=== PATIENT | female | born 2000 | race Caucasian/White ===

== ENCOUNTER 2024-06-04 14:43 | Outpatient (CLI) | payer OTHER, SELFPAY ==
--- NOTE | 2024-06-04 15:00 | CRLHL7_ITS ---
For Patients: As a result of the Century Cures Act, medical imaging exams and procedure reports are released immediately into your electronic medical record. You may view this report before your referring provider. If you have questions, please contact your health care provider. INDICATION: Dating and viability. LMP 03/31/2024. COMPARISON: None. TECHNIQUE: Ultrasound OB pelvis with grayscale imaging and color Doppler analysis using transvaginal technique. FINDINGS: Sonographic imaging demonstrates a single intrauterine gestational sac containing a yolk sac but no pole. There appears to be some debris within the sac. The mean sac diameter measures 2.1 cm which corresponds to a gestational age of 7 weeks 0 days. The placenta has not yet developed. There is a 2.3 x 1.0 x 2.1 cm subchorionic hemorrhage in the lower uterus. The right ovary measures 4.5 x 2.7 x 4.2 cm and the left ovary measures 3.5 x 1.4 x 1.9 cm. The ovaries demonstrate normal arterial and venous blood flow on color Doppler analysis. There is a 3.8 x 2.5 x 3.6 cm anechoic cyst in the right ovary. No suspicious adnexal mass. No free fluid in the pelvic cul-de-sac. IMPRESSION: 1. Intrauterine gestational sac containing a yolk sac but no pole. Ultrasound gestational age is 7 weeks 0 days which is discordant with the clinical gestational age of 9 weeks 2 days by LMP. 2. Findings are suspicious but not technically diagnostic of failure. Recommend follow-up ultrasound in 1 week. 3. Simple appearing right ovarian cyst measuring 3.8 cm. 4. Small to moderate subchorionic hemorrhage. 5. Findings discussed with Gisselle Monet at 5:48 p.m. on 06/04/2024. Dictated by Fay Richardson MD @ 06/04/2024 5:32:34 PM (Electronically Signed)
== END 2024-06-04 14:44 | disposition home or self-care (01) ==
LOC: US 14:46
PROVIDERS: Visit Provider Registered Nurse
DX: Z34.91 Encounter for supervision of normal pregnancy, unspecified, first trimester (principal); O20.9 Hemorrhage in early pregnancy, unspecified; O34.81 Maternal care for other abnormalities of pelvic organs, first trimester; N83.291 Other ovarian cyst, right side; Z3A.09 9 weeks gestation of pregnancy
CPT/HCPCS: 76817; 84702; 86850; 86900; 86901; 93976

== ENCOUNTER 2024-06-07 09:06 | Outpatient (CLI) | payer OTHER, SELFPAY | END 2024-06-07 09:07 | disposition home or self-care (01) | LOC: NFLDREF 06-10 11:15 | PROVIDERS: Visit Provider Registered Nurse | DX: Z34.90 Encounter for supervision of normal pregnancy, unspecified, unspecified trimester (principal) | CPT/HCPCS: 84702 ==

== ENCOUNTER 2024-06-13 15:38 | Outpatient (CLI) | payer OTHER, SELFPAY | END 2024-06-13 15:39 | disposition home or self-care (01) | LOC: NFLDREF 06-17 08:18 | PROVIDERS: Visit Provider Registered Nurse | DX: O03.9 Complete or unspecified spontaneous abortion without complication (principal) | CPT/HCPCS: 84702 ==

== ENCOUNTER 2024-06-20 13:54 | Outpatient (CLI) | payer OTHER, SELFPAY | END 2024-06-20 13:55 | disposition home or self-care (01) | LOC: NFLDREF 06-26 10:08 | PROVIDERS: Visit Provider Registered Nurse | DX: O03.9 Complete or unspecified spontaneous abortion without complication (principal) | CPT/HCPCS: 84702 ==

== ENCOUNTER 2024-06-27 13:55 | Outpatient (CLI) | payer OTHER, SELFPAY | END 2024-06-27 13:56 | disposition home or self-care (01) | LOC: NFLDREF 06-28 11:17 | PROVIDERS: Visit Provider Registered Nurse | DX: Z34.90 Encounter for supervision of normal pregnancy, unspecified, unspecified trimester (principal) | CPT/HCPCS: 84702 ==

== ENCOUNTER 2024-07-25 13:50 | Outpatient (CLI) | payer OTHER, SELFPAY | END 2024-07-25 13:51 | disposition home or self-care (01) | LOC: NFLDREF 07-28 17:56 | PROVIDERS: Visit Provider Obstetrics & Gynecology | DX: Z32.01 Encounter for pregnancy test, result positive (principal) | CPT/HCPCS: 84702 ==

== ENCOUNTER 2024-08-06 13:34 | Outpatient (CLI) | payer OTHER, SELFPAY | END 2024-08-06 13:35 | disposition home or self-care (01) | LOC: NFLDREF 13:35 | PROVIDERS: Visit Provider Obstetrics & Gynecology | DX: O20.9 Hemorrhage in early pregnancy, unspecified (principal) | CPT/HCPCS: 84702 ==

== ENCOUNTER 2024-08-15 13:53 | Outpatient (CLI) | payer OTHER, SELFPAY ==
--- NOTE | 2024-08-15 14:00 | CRLHL7_ITS ---
For Patients: As a result of the Century Cures Act, medical imaging exams and procedure reports are released immediately into your electronic medical record. You may view this report before your referring provider. If you have questions, please contact your health care provider. INDICATION: First trimester dating and viability. TECHNIQUE: Ultrasound OB pelvis transabdominal and transvaginal. Real-time breen-scale imaging of the pelvis was performed. COMPARISON: None. FINDINGS: Intrauterine gestation: Single. heart activity (bpm): 163. [place]-rump length: 1.8 cm. Estimated ultrasound age: 8 weeks 2 days. NARENDRA by ultrasound: March 25, 2025. Yolk sac: Normal. Perigestational hemorrhage: Present measuring 3 x 3 x 1 cm. Ovaries and adnexa: Unremarkable. Suspicious pelvic fluid collections: None. IMPRESSION: Single viable intrauterine . There is a 3 x 3 x 1 cm subchorionic hemorrhage. No other abnormality. Dictated by Zeeshan Chinchilla MD @ 08/18/2024 8:47:14 PM (Electronically Signed)
== END 2024-08-15 13:54 | disposition home or self-care (01) ==
LOC: US 13:53
PROVIDERS: Visit Provider Physician Assistant
DX: Z34.91 Encounter for supervision of normal pregnancy, unspecified, first trimester (principal); O20.9 Hemorrhage in early pregnancy, unspecified
CPT/HCPCS: 76817; 86592; 86703; 86704; 86706; 86762; 86787; 86803; 86850; 86900; 86901; 87086; 87340; 87491; 87591; 88142

== ENCOUNTER 2024-08-15 14:49 | Outpatient (CLI) | payer OTHER, SELFPAY ==
[2024-08-15 19:15] LABS: Chlamydia DNA Amplified* NOT DETECTED (No Detected); GC DNA Amplified* NOT DETECTED (No Detected)
== END 2024-08-15 14:50 | disposition home or self-care (01) ==
PROVIDERS: Visit Provider Physician Assistant
DX: Z34.91 Encounter for supervision of normal pregnancy, unspecified, first trimester (principal); Z12.4 Encounter for screening for malignant neoplasm of cervix
CPT/HCPCS: 86592; 86703; 86704; 86706; 86762; 86787; 86803; 86850; 86900; 86901; 87086; 87340; 87491; 87591; 87624; 87625; 88141; 88142

== ENCOUNTER 2024-11-07 07:59 | Outpatient (CLI) | payer OTHER, SELFPAY ==
--- NOTE | 2024-11-07 08:15 | CRLHL7_ITS ---
For Patients: As a result of the Century Cures Act, medical imaging exams and procedure reports are released immediately into your electronic medical record. You may view this report before your referring provider. If you have questions, please contact your health care provider. INDICATION: Evaluate anatomy. COMPARISON: 08/15/2024 TECHNIQUE: Real time breen scale imaging of the fetus was performed as well as color Doppler analysis of the umbilical vessels. FINDINGS: Sonographic imaging demonstrates a single living intrauterine gestation. Fetus demonstrates a regular cardiac rate of 155 beats per minute. Fetus has a breech position. The placenta lies anteriorly without evidence of placenta previa. Edge of the placenta is located 4.4 cm from the internal cervical os. Amniotic fluid volume appears normal. Single deepest vertical pocket: 4.0 cm. The cervix is closed and measures 5.2 cm in length. The composite ultrasound gestational age is calculated at 20 weeks 0 days with an estimated sonographic due date of 03/27/2025. The estimated weight is 317 grams which lies at the 23rd %. The following biometric measurements were obtained: Biparietal diameter: 4.5 cm/19 weeks 3 days 19th% Head circumference: 17.0 cm/19 weeks 4 days 14th% Abdominal circumference: 14.2 cm/19 weeks 4 days 22nd% Femur length: 3.3 cm/20 weeks 2 days 40th% The HC/AC ratio measures: 1.19 range (1.08-1.25) On anatomic survey, there is a normal appearance of the cerebral ventricles, cavum septi pellucidi, cisterna magna and cerebellum. The nose and lips appear normal. profile not visualized due to position the cervical, thoracic and lumbar spine are well visualized and appear normal. Heart views not well visualized due to position. The diaphragm and stomach appear normal. The kidneys and bladder also appear normal. Renal pelvis measures less than 3 millimeters bilaterally, considered normal. There is a normal three-vessel cord and there is a margin placenta cord insertion site located 1.4 cm from the edge of the placenta. The four extremities appear normal. IMPRESSION: Concordance of clinical and sonographic dating. Incomplete visualization of the profile and heart views due to positioning. Remainder of the anatomic survey unremarkable. Short-term follow-up recommended. Marginal placental cord insertion located 1.4 cm from the placental edge. Dictated by Сергей Razo MD @ 11/07/2024 10:35:49 AM (Electronically Signed)
== END 2024-11-07 08:00 | disposition home or self-care (01) ==
PROVIDERS: Visit Provider Advanced Practice Midwife
DX: Z34.92 Encounter for supervision of normal pregnancy, unspecified, second trimester (principal); O36.8320 Maternal care for abnormalities of the fetal heart rate or rhythm, second trimester, not applicable or unspecified; Z3A.20 20 weeks gestation of pregnancy
CPT/HCPCS: 76805

== ENCOUNTER 2024-11-21 12:00 | Outpatient (CLI) | payer OTHER, SELFPAY ==
--- NOTE | 2024-11-21 12:15 | CRLHL7_ITS ---
For Patients: As a result of the Century Cures Act, medical imaging exams and procedure reports are released immediately into your electronic medical record. You may view this report before your referring provider. If you have questions, please contact your health care provider. INDICATION: Facial profile and heart views suboptimal on survey TECHNIQUE: Limited transabdominal two-dimensional breen-scale ultrasound examination. COMPARISON: survey of 11/07/2024 FINDINGS: There is a living fetus in cephalic lie with gestational age of 22 weeks 2 days by LMP and EDC of 03/25/2025. The heart rate is measured at 149 beats per minute and the rhythm appears regular. The amniotic fluid volume is within normal limits with single deepest pocket of 4.8 cm. The placenta is anterior and superior to the cervical os. There is no evidence of previa. The facial profile, four-chamber view of the heart and ventricular outflow tracts are visualized and appear to be within normal limits. IMPRESSION: 1. Living fetus in cephalic lie with gestational age of 22 weeks 2 days by LMP and EDC of 03/25/2025. 2. Facial profile, four-chamber view of the heart and ventricular outflow tracts visualized and appear to be within normal limits. Dictated by Dereje Hunter MD @ 11/22/2024 2:25:54 PM (Electronically Signed)
== END 2024-11-21 12:01 | disposition home or self-care (01) ==
LOC: US 12:01
PROVIDERS: Visit Provider Advanced Practice Midwife
DX: O36.8320 Maternal care for abnormalities of the fetal heart rate or rhythm, second trimester, not applicable or unspecified (principal); O35.AXX0 Maternal care for other (suspected) fetal abnormality and damage, fetal facial anomalies, not applicable or unspecified; Z3A.22 22 weeks gestation of pregnancy
CPT/HCPCS: 76816

== ENCOUNTER 2025-01-02 09:00 | Outpatient (CLI) | payer OTHER, SELFPAY ==
--- NOTE | 2025-01-02 09:15 | CRLHL7_ITS ---
For Patients: As a result of the Century Cures Act, medical imaging exams and procedure reports are released immediately into your electronic medical record. You may view this report before your referring provider. If you have questions, please contact your health care provider. INDICATION: Marginal cord insertion follow-up TECHNIQUE: Ultrasound OB pelvis transabdominal. Real-time breen-scale imaging of the fetus was performed without stress testing. COMPARISON: Ob ultrasound November 21, 2024 FINDINGS: Sonographic imaging demonstrates a single living intrauterine gestation. Fetus demonstrates a regular cardiac rate of 147 beats per minute. Fetus has a cephalic orientation. The placenta lies anterior. Biometric measurements: Biparietal diameter: 6.7 centimeters, 26 weeks 6 days. Head circumference: 25.4 centimeters, 27 weeks 4 days. Abdominal circumference: 21.2 centimeters, 25 weeks 5 days, less than 3rd percentile. Femur length: 5.3 centimeters, 28 weeks 1 day. Estimated weight: 989.32 grams, 4.7 percentile. Estimated ultrasound age by today`s measurements is 27 weeks 3 days. Amniotic fluid volume appears normal. breathing movements, motion, and tone were all observed. Normal umbilical cord Doppler systolic to diastolic ratio. The cervix is closed. The visualized anatomy is grossly unremarkable. IMPRESSION: 1. Single viable intrauterine gestation with a biophysical profile score of 8/8. 2. Demonstration of low percentile for abdominal circumference, less than 3 percent for gestational age consistent with new intrauterine growth restriction. Recommend continued follow-up. 3. No other acute abnormalities are appreciated. Dictated by Samuel Montesinos MD @ 01/02/2025 11:28:22 AM (Electronically Signed)
== END 2025-01-02 09:01 | disposition home or self-care (01) ==
LOC: US 09:00
PROVIDERS: Visit Provider Advanced Practice Midwife
DX: O43.193 Other malformation of placenta, third trimester (principal); Z34.93 Encounter for supervision of normal pregnancy, unspecified, third trimester; Z3A.28 28 weeks gestation of pregnancy
CPT/HCPCS: 76816; 76819; 76820

== ENCOUNTER 2025-01-02 09:00 | Outpatient (CLI) | payer OTHER, SELFPAY | END 2025-01-02 09:01 | disposition home or self-care (01) | LOC: NFLDREF 01-06 20:09 | PROVIDERS: Visit Provider Midwife | DX: Z34.93 Encounter for supervision of normal pregnancy, unspecified, third trimester (principal); Z3A.28 28 weeks gestation of pregnancy | CPT/HCPCS: 86592 ==

== ENCOUNTER 2025-01-02 11:12 | Outpatient (CLI) | payer OTHER, SELFPAY ==
[2025-01-02 11:19] VITALS: PULSE 83; O2SAT 100
[2025-01-02 11:21] VITALS: BP 125/74; PULSE 98; RESP 16; TEMP 36.5
--- NOTE | 2025-01-02 13:52 | PC.OBNST ---
NST Note NST Note Start: 01/02/25 11:14 Freq: ONCE Status: Active Protocol: Document 01/02/25 13:50 BAW (Rec: 01/02/25 13:52 BAW No Response) NST Note 1 Para (# of births) 0 EDC 03/25/25 Gestational Age In Weeks & Days 28 Weeks & 2 Days Patient Presented with Complaint(s) of Other Other Complaints non-reassuring NST in clinic Reactive Yes Appropriate for Gestational Age Yes JANEE Alba RNC Date 01/02/25 Reactive Yes Appropriate for Gestational Age Yes JANEE Mckenzie RNC Date 01/02/25 OB NST charge Yes Complete NST Note via Write Note Yes The provider's electronic signature indicates the NST is reactive/appropriate for gestational age. *Note to provider: If an addendum is required, open the patient's chart and click on the note under the Nurse/Allied Health tab.
== END 2025-01-02 13:15 | disposition home or self-care (01) ==
LOC: OB OUT 11:13 → OB 11:13
PROVIDERS: Visit Provider Advanced Practice Midwife
DX: O36.5930 Maternal care for other known or suspected poor fetal growth, third trimester, not applicable or unspecified (principal); Z3A.28 28 weeks gestation of pregnancy
CPT/HCPCS: 59025; G0463

== ENCOUNTER 2025-01-04 21:46 | Outpatient (CLI) | payer OTHER, SELFPAY ==
[2025-01-04 21:53] VITALS: BP 120/65; PULSE 81; TEMP 36.6
--- NOTE | 2025-01-04 22:32 | PC.OBNST ---
NST Note NST Note Start: 01/04/25 21:50 Freq: ONCE Status: Active Protocol: Document 01/04/25 22:30 BRETT (Rec: 01/04/25 22:31 BRETT [id number]) NST Note 2 Para (# of births) 0 EDC 03/25/25 Gestational Age In Weeks & Days 28 Weeks & 4 Days Patient Presented with Complaint(s) of Decreased movement Reactive Yes Appropriate for Gestational Age Yes RN Fartun RN Date 01/04/25 Reactive Yes Appropriate for Gestational Age Yes RN Vel RN Date 01/04/25 OB NST charge Yes Complete NST Note via Write Note Yes The provider's electronic signature indicates the NST is reactive/appropriate for gestational age. *Note to provider: If an addendum is required, open the patient's chart and click on the note under the Nurse/Allied Health tab.
== END 2025-01-04 22:42 | disposition home or self-care (01) ==
LOC: OB OUT 21:47 → OB 21:47
PROVIDERS: Visit Provider Advanced Practice Midwife
DX: O36.8130 Decreased fetal movements, third trimester, not applicable or unspecified (principal); Z3A.28 28 weeks gestation of pregnancy
CPT/HCPCS: 59025; G0463

== ENCOUNTER 2025-01-07 12:47 | Outpatient (CLI) | payer OTHER, SELFPAY | END 2025-01-07 12:48 | disposition home or self-care (01) | LOC: US 12:48 | PROVIDERS: Visit Provider Advanced Practice Midwife | DX: O36.5930 Maternal care for other known or suspected poor fetal growth, third trimester, not applicable or unspecified (principal); Z3A.29 29 weeks gestation of pregnancy | CPT/HCPCS: 76815; 76820 ==

== ENCOUNTER 2025-01-14 12:45 | Outpatient (CLI) | payer OTHER, SELFPAY ==
--- NOTE | 2025-01-14 13:00 | CRLHL7_ITS ---
For Patients: As a result of the Century Cures Act, medical imaging exams and procedure reports are released immediately into your electronic medical record. You may view this report before your referring provider. If you have questions, please contact your health care provider. INDICATION: IUGR COMPARISON: 01/07/2025 TECHNIQUE: Color doppler and spectral Doppler analysis of the umbilical artery performed along with grayscale images of fetus. FINDINGS: Sonographic imaging demonstrates a single living intrauterine gestation. Fetus demonstrates a regular cardiac rate of 144 beats per minute. Fetus has a vertex position. The umbilical artery demonstrates adequate diastolic blood flow. The S/D ratio measures 2.3-3.1. The amniotic fluid volume appears normal and there is a single deepest pocket measurement of 2.5 cm. IMPRESSION: Normal umbilical artery diastolic flow with SD ratio measuring between 2.3 and 3.1. Dictated by Сергей Razo MD @ 01/15/2025 6:57:04 AM (Electronically Signed)
== END 2025-01-14 12:46 | disposition home or self-care (01) ==
LOC: US 12:45
PROVIDERS: Visit Provider Advanced Practice Midwife
DX: O36.5990 Maternal care for other known or suspected poor fetal growth, unspecified trimester, not applicable or unspecified (principal)
CPT/HCPCS: 76815; 76820

== ENCOUNTER 2025-01-28 12:44 | Outpatient (CLI) | payer OTHER, SELFPAY ==
--- NOTE | 2025-01-28 13:00 | US_ITS ---
Patient: ELTON PRICE Facility:?[facility] Patient ID:?[id number] Site Patient ID:?[id number]. Site :?[id number] Study:?US-OB Pelvis follow up- growth-01/28/2025 3:12:33 PM Ordering Physician:Rae Pena Final Report: OB ULTRASOUND NARENDRA by US: 03/15/2025. GA: 32 w, 0 d. Single. INDICATION: IUGR. TECHNIQUE: Real time breen scale imaging of the fetus was performed. Transabdominal. POSITIONING: Vertex. AMNIOTIC FLUID: 4.6 cm. SDP (N: greater than 2 x 1 cm) PLACENTA: Technique: Transabdominal. PLACENTA POSITION: Anterior. DOPPLER: heart rate: 123 bpm. Umbilical artery: 2.3-2.5 S/D. 28-34 w = less than 4.0. BIOMETRY: BPD: 7.6 cm. 30 w, 3 d, 6 percent. HC: 28.2 cm. 31 w, 0 d, 3 percent. AC: 26.2 cm. 30 w, 2 d, 9 percent. FL: 6.1 cm. 31 w, 6 d, 33 percent. FL/AC ratio: 23.44 percent. HC/AC ratio: 1.08. EFW: 1658 g. Weight: 3 lbs, 10 oz. age by this US: 30 w, 6 d. NARENDRA by this US: 04/02/2025. Percentile by NARENDRA: 12 percent. IMPRESSION: 1. Sonographic gestational age 30 weeks 6 days and sonographic due date 04/02/2025. Sonographic age is 8 days behind the clinical age. 2. Estimated weight 12th percentile. Abdominal circumference 9th percentile. Head circumference 3rd percentile. 3. Normal SD ratio 2.3-2.5. Сергей Razo M.D. Diagnostic Radiologist [email or web address] ROSALIA/ofelia D& Transcribed: 9:52 a.m. JR/Dictated by: Сергей Razo MD @ 01/29/2025 8:43:00 AM (Electronic Signature)
== END 2025-01-28 12:45 | disposition home or self-care (01) ==
LOC: US 12:45
PROVIDERS: Visit Provider Advanced Practice Midwife
DX: O36.5930 Maternal care for other known or suspected poor fetal growth, third trimester, not applicable or unspecified (principal); Z3A.32 32 weeks gestation of pregnancy
CPT/HCPCS: 76816; 76820

== ENCOUNTER 2025-02-11 12:43 | Outpatient (CLI) | payer OTHER, SELFPAY ==
--- NOTE | 2025-02-11 13:00 | CRLHL7_ITS ---
For Patients: As a result of the Century Cures Act, medical imaging exams and procedure reports are released immediately into your electronic medical record. You may view this report before your referring provider. If you have questions, please contact your health care provider. OB ULTRASOUND, 02/11/2025 NARENDRA by LMP/US: 03/25/2025. GA: 34 w, 0 d. INDICATION: IUGR TECHNIQUE: Real time breen scale imaging of the fetus was performed. Transabdominal. COMPARISON: US 01/28, 01/14, 01/10. position: Vertex. Cervix: Not visualized. Technique: Transabdominal. Placenta: Anterior. Amniotic Fluid: 3.8 cm SDP (greater than/equal to: 2- less than 8 cm). heart rate: 152 bpm. Umbilical artery 2.1, 2.3, 3.0 >34 w=<3.5 IMPRESSION: Umbilical artery SD ratio measures between 2.1 and 3.0. Amniotic fluid single deepest pocket 3.8 cm. Сергей Razo M.D. Diagnostic Radiologist [email or web address] ROSALIA/ofelia JR/Dictated by: Сергей Razo MD @ 02/12/2025 6:22:00 AM (Electronically Signed)
== END 2025-02-11 12:44 | disposition home or self-care (01) ==
LOC: US 12:44
PROVIDERS: Visit Provider Advanced Practice Midwife
DX: O36.5990 Maternal care for other known or suspected poor fetal growth, unspecified trimester, not applicable or unspecified (principal); Z3A.34 34 weeks gestation of pregnancy
CPT/HCPCS: 76815; 76820

== ENCOUNTER 2025-02-16 17:27 | Outpatient (CLI) | payer OTHER, SELFPAY ==
[2025-02-16 17:36] VITALS: PULSE 101; TEMP 36.6; O2SAT 97
[2025-02-16 17:37] VITALS: BP 129/72; PULSE 90
--- NOTE | 2025-02-16 17:39 | P.OBLDTN_ITS ---
OB - Triage/Final Diagnosis Visit Information Date Seen: 02/16/25 Date of evaluation: 02/16/25 Narrative: The patient is a 24 year old 2 para 0010 at 34w5d gestation by 1st tri US, who presents with decreased movement. She had layed down and drank co ld water only got 5 movements in an hour and a half. Baby has started moving more since arrival. No LOF, or vaginal bleeding. No cramping or contraction pain. Partner: Ted Needs Hgb next visit 34 wks # IUGR by AC, 9%, Total EFW 12%ile * Severe IUGR, <3%ile AC dx at 28 weeks * MFM Consult sent to [place] 01/02/25: (completed 01/21/2025:agree with plan currently in place) * MFM visit 01/21: EFW 8%, AC 3% * US 01/28: EFW 12%, AC 9% * Repeat US in 3 weeks (02/18) Will continue testing and dopplers until next growth US before stopping. * UA doppler Q2 weeks? * NST weekly? * Growth US every 3 weeks?? * Delivery recommended 37 weeks? # Marginal cord 1.4cm. Growth at 28 wks: ordered-IUGR diagnosed with AC <3%ile, EFW 4.7% 01/21/25: Report from [facility]; EFW 8%ile. 01/28/25: Growth US tach report: EFW: 12%, S/D ratio WNL. # varicella nonimmune Vaccinate Imagin08/18/24 1st trimester US-Single viable intrauterine . There is a 3 x 3 x 1 cm subchorionic hemorrhage. No other abnormality. 11/07/2025 Anatomy: EFW 23%, breech, marginal cord insertion (1.4cm), profile and heart views not obtained. 11/21/2024 Follow-up: : IMPRESSION: 1. Single viable intrauterine gestation with a biophysical profile score of 8/8. 2. Demonstration of low percentile for abdominal circumference, less than 3 percent for gestational age consistent with new intrauterine growth restriction. Recommend continued follow-up. 3. No other acute abnormalities are appreciated. 01/02/2025 Growth US at 28 weeks: IMPRESSION: 1. Single viable intrauterine gestation with a biophysical profile score of 8/8. 2. Demonstration of low percentile for abdominal circumference, less than 3 percent for gestational age consistent with new intrauterine growth restriction. Recommend continued follow- up. 3. No other acute abnormalities are appreciated. 01/07/2025 Dopplers: IMPRESSION: 1. Normal amniotic fluid. 2. Umbilical artery S/D ratio 2.9 cm. 3. Cervix measures 2.6 cm in length. Consider transvaginal imaging for more accurate measurement. 01/14/25: Dopplers: Normal umbilical artery diastolic flow with SD ratio measuring between 2.3 and 3.25/09/25 01/21/25: Report from [facility]; EFW 8%ile, AC 3%, normal umbilical artery Doppler S/D ratio, subjectively normal amniotic fluid volume, marginal cord insertion(measurement not stated). 01/28/25: Growth US tach report: EFW: 12%, AC 9%, S/D ratio WNL. COVID: Declined Flu: Declined Tdap: 01/14/25 32 week mental health: [] Last pap: 08/15/24 Assessment: NST reactive 34w5d P: Pt reassured. To continue scheduled high risk care and contact again with any further concerns. Meagan agrees with plan and has no further questions. Evaluation Vital signs: Vital Signs - 24 hr 02/16/25 17:36 02/16/25 17:36 02/16/25 17:37 Temperature 97.9 F Pulse Rate Blood Pressure 129/72 Pulse Oximetry 97 02/16/25 17:37 Temperature Pulse Rate 90 Blood Pressure Pulse Oximetry Comments: Vitals Reviewed Constitutional:? Alert and oriented x3 HEENT:? Normocephalic, atraumatic Lungs:? Clear to auscultation bilaterally Heart:? Regular rate and rhythm, no murmur, rub or gallop Abdomen:? Soft, nontender, and gravid. Vertex by David's. Extremities:? No edema or erythema NST: 125-130 bpm/moderate variability/accelerations present/decelerations absent/contractions not present Final Diagnosis (1) Supervision of high risk in third trimester: Status: Acute (2) IUGR (intrauterine growth restriction): Status: Acute Problem details: Severe IUGR, AC <3%ile @ 28 weeks, currently 12%ile @ 32 weeks (3) Marginal insertion of umbilical cord: Status: Acute Total Time Spent Total Time Spent: 35
--- NOTE | 2025-02-16 18:34 | PC.OBNST ---
NST Note NST Note Start: 02/16/25 17:38 Freq: ONCE Status: Active Protocol: Document 02/16/25 18:30 CATHOLIC (Rec: 02/16/25 18:32 CATHOLIC [id number]) NST Note 2 Para (# of births) 0 EDC 03/25/25 Gestational Age In Weeks & Days 34 Weeks & 5 Days Patient Presented with Complaint(s) of Decreased movement Reactive Yes Appropriate for Gestational Age Yes JANEE Caban Date 02/16/25 Reactive Yes Appropriate for Gestational Age Yes JANEE Kumar Date 02/16/25 OB NST charge Yes Complete NST Note via Write Note Yes The provider's electronic signature indicates the NST is reactive/appropriate for gestational age. *Note to provider: If an addendum is required, open the patient's chart and click on the note under the Nurse/Allied Health tab.
== END 2025-02-16 18:00 | disposition home or self-care (01) ==
LOC: OB OUT 17:27 → OB 17:27
PROVIDERS: Visit Provider Midwife
DX: O36.8130 Decreased fetal movements, third trimester, not applicable or unspecified (principal); Z3A.34 34 weeks gestation of pregnancy
CPT/HCPCS: 59025; G0463

== ENCOUNTER 2025-02-18 07:52 | Outpatient (CLI) | payer OTHER, SELFPAY ==
--- NOTE | 2025-02-18 08:15 | CRLHL7_ITS ---
For Patients: As a result of the Century Cures Act, medical imaging exams and procedure reports are released immediately into your electronic medical record. You may view this report before your referring provider. If you have questions, please contact your health care provider. OBSTETRICAL ULTRASOUND ??? FOLLOW-UP, 02/18/2025 INDICATION: IUGR. Growth. CLINICAL HISTORY: NARENDRA by US: 03/25/2025 Gestational Age: 35 weeks 0 days COMPARISON: 01/28/2025, 01/21/2025 TECHNIQUE: Real-time breen-scale imaging of the fetus was performed transabdominal. FINDINGS: Fetus: Single Cervix: Not visualized positioning: Vertex Amniotic fluid: 2.9 SDP Placenta technique: Transabdominal Placenta position: Anterior DOPPLERS: heart rate: 138 bpm Umbilical artery: 2.2 ??? 2.3 S/D; greater than 34 weeks = less than 3.5 BIOMETRY: BPD: 8.0 cm, 32 weeks 1 day, less than 3% HC: 29.1 cm, 32 weeks 1 day, less than 3% AC: 27.6 cm, 31 weeks 4 days, less than 3% FL: 6.6 cm, 34 weeks 1 day, 21% FL/AC Ratio: 24.06% HC/AC ratio: 1.06 EFW: 1983 grams; 4 lbs. 6 oz. age by this ultrasound: 32 weeks 4 days NARENDRA by this ultrasound: 04/11/2025 Percentile by NARENDRA: 3% IMPRESSION: 1. Sonographic gestational age 32 weeks 4 days and sonographic due date 04/11/2025. Sonographic age is 17 days behind the clinical age. 2. Estimated weight is 3rd percentile. BPD, HC and AC are all less than 3rd percentile. 3. Amniotic fluid single deepest pocket is 2.9 cm. 4. Umbilical artery S/D ratio is 2.2 ??? 2.3. СЕРГЕЙ BRAGG M.D. Diagnostic Radiologist [email or web address] Transcribed: 10:[address]/Dictated by: Сергей Bragg MD @ 02/18/2025 8:54:00 AM (Electronically Signed)
== END 2025-02-18 07:53 | disposition home or self-care (01) ==
LOC: US 07:52
PROVIDERS: Visit Provider Advanced Practice Midwife
DX: O36.5930 Maternal care for other known or suspected poor fetal growth, third trimester, not applicable or unspecified (principal); Z3A.35 35 weeks gestation of pregnancy
CPT/HCPCS: 76816; 76820

== ENCOUNTER 2025-02-18 09:05 | Outpatient (CLI) | payer OTHER, SELFPAY | END 2025-02-18 09:06 | disposition home or self-care (01) | LOC: NFLDREF 02-21 23:39 | PROVIDERS: Visit Provider Advanced Practice Midwife | DX: O36.5930 Maternal care for other known or suspected poor fetal growth, third trimester, not applicable or unspecified (principal); O43.193 Other malformation of placenta, third trimester; Z3A.35 35 weeks gestation of pregnancy | CPT/HCPCS: 87081; 87653 ==

== ENCOUNTER 2025-02-25 10:06 | Outpatient (CLI) | payer OTHER, SELFPAY ==
--- NOTE | 2025-02-25 10:15 | CRLHL7_ITS ---
For Patients: As a result of the Cures Act, medical imaging exams and procedure reports are released immediately into your electronic medical record. You may view this report before your referring provider. If you have questions, please contact your health care provider. OBSTETRICAL ULTRASOUND LIMITED, 02/25/2025 INDICATION: IUGR. CLINICAL HISTORY: NARENDRA by US: 03/25/2025 Gestational Age: 36 weeks 0 days COMPARISON: 02/18/2025 TECHNIQUE: Real-time breen-scale imaging of the fetus was performed transabdominal with UA Doppler. FINDINGS: Fetus: Single Cervix: Not visualized positioning: Vertex Amniotic Fluid: 5.7 cm SDP Placenta technique: Transabdominal Placenta position: Anterior, right wall DOPPLERS: heart rate: 145 bpm Umbilical artery: 2.1 S/D, within normal limits; greater than 34 weeks = less than 3.5 IMPRESSION: Umbilical artery S/D ratio 2.1. 1. СЕРГЕЙ BRAGG M.D. Diagnostic Radiologist [email or web address] Transcribed: 5:[address]/Dictated by: Сергей Bragg MD @ 02/25/2025 3:17:00 PM (Electronically Signed)
== END 2025-02-25 10:07 | disposition home or self-care (01) ==
LOC: US 10:07
PROVIDERS: Visit Provider Advanced Practice Midwife
DX: O36.5930 Maternal care for other known or suspected poor fetal growth, third trimester, not applicable or unspecified (principal); Z3A.36 36 weeks gestation of pregnancy
CPT/HCPCS: 76815; 76820

== ENCOUNTER 2025-03-04 19:37 | Inpatient (IN) | payer OTHER, SELFPAY ==
[2025-03-04] VITALS (7 sets, daily range): BP systolic 117–131; BP diastolic 66–80; PULSE 80–103; TEMP 36.8–37.1; BMI 33.2
--- NOTE | 2025-03-04 21:00 | P.LDBA_ITS ---
Subjective History of Present Illness Narrative: Meagan is a24 yo at 37 0/7 weeks being admitted to Labor and Delivery for induction of labor for IUGR in the 3%ile. She denies any cramping or contractions on arrival. She has had some theron denny contractions but nothing painful. She denies any leaking of fluid or bleeding. She reports active movement. She is supported in labor by her Partner, Ted. Her full history and physical was dictated by TANYA Salomon on 02/25/2025. Please see this for details. Specific Issues/Plans Partner: Ted H&P: 02/25/25 by Seda Kaiser CNM # IUGR 3%ile * Severe IUGR, <3%ile AC dx at 28 weeks * MFM Consult sent to [place] 01/02/25: (completed 01/21/2025:agree with plan currently in place) * See below for US details * UA doppler weekly? * NST weekly? * Growth US every 3 weeks?? * Delivery recommended 37 weeks: IOL scheduled 03/04 * Reviewed by TANYA Salomon with [facility], agrees with CNM care for IOL # Marginal cord 1.4cm. Growth at 28 wks: ordered-IUGR diagnosed with AC <3%ile, EFW 4.7% 01/21/25: Report from [facility]; EFW 8%ile. 01/28/25: Growth US tach report: EFW: 12%, S/D ratio WNL. # varicella nonimmune Vaccinate Imagin08/18/24 1st trimester US-Single viable intrauterine . There is a 3 x 3 x 1 cm subchorionic hemorrhage. No other abnormality. 11/07/2025 Anatomy: EFW 23%, breech, marginal cord insertion (1.4cm), profile an d heart views not obtained. 11/21/2024 Follow-up: : IMPRESSION: 1. Single viable intrauterine gestation with a biophysical profile score of 8/8. 2. Demonstration of low percentile for abdominal circumference, less than 3 percent for gestational age consistent with new intrauterine growth restriction. Recommend continued follow-up. 3. No other acute abnormalities are appreciated. 01/02/2025 Growth US at 28 weeks: IMPRESSION: 1. Single viable intrauterine gestation with a biophysical profile score of 8/8. 2. Demonstration of low percentile for abdominal circumference, less than 3 percent for gestational age consistent with new intrauterine growth restriction. Recommend continued follow- up. 3. No other acute abnormalities are appreciated. 01/07/2025 Dopplers: IMPRESSION: 1. Normal amniotic fluid. 2. Umbilical artery S/D ratio 2.9 cm. 3. Cervix measures 2.6 cm in length. Consider transvaginal imaging for more accurate measurement. 01/14/25: Dopplers: Normal umbilical artery diastolic flow with SD ratio measuring between 2.3 and 3.25/09/25 01/21/25: Report from [facility]; EFW 8%ile, AC 3%, normal umbilical artery Doppler S/D ratio, subjectively normal amniotic fluid volume, marginal cord insertion(measurement not stated). 01/28/25: Growth US tech report: EFW: 12%, AC 9%, S/D ratio WNL. 02/25/2025: IMPRESSION: 1.Sonographic gestational age 32 weeks 4 days and sonographic due date 04/11/2025. Sonographic age is 17 days behind the clinical age. 2.Estimated weight is 3rd percentile. BPD, HC and AC are all less than 3rd percentile. 3.Amniotic fluid single deepest pocket is 2.9 cm. 4.Umbilical artery S/D ratio is 2.2 ??? 2.3. COVID: Declined Flu: Declined Tdap: 01/14/25 Last pap: 08/15/24 OB - Problem Based A/P Additional Plan (1) Encounter for induction of labor: Status: Acute (2) IUGR (intrauterine growth restriction): Problem details: IUGR, diagnosed by AC <3%ile @ 28 weeks; 12%ile @ 32 weeks; 3% at 35wks Status: Acute (3) Marginal insertion of umbilical cord: Status: Acute (4) 37 weeks gestation of : Status: Acute Plan ASSESSMENT:? 24 yo at 37 0/7 weeks gestation? complicated by:?IUGR 3%ile, Marginal Cord (1.7 cm from placenta edge), Varicella non-immune Labor type: Induced, Not yet in labor? Category 1 FHR pattern.?? Labor complicated by: none? GBS negative? ? PLAN:? 1. Routine intrapartum cares as ordered. Reviewed labor IOL options (cytotec, cervadil, pitocin, cook) and risk/benefit of each given current status. Agreed on placement of cook catheter and starting pitocin in the legal billing coordinator hours. Plans changed after AROM occurred with Cook placement. Cook removed. Reviewed options and recommended pitocin. Patient is agreeable to plan. 2. Monitoring per policy, continuous with IUGR.? 3. Planning unmedicated . Candidate for analgesia of choice, if desired. Did discuss options for morphine and/or vistaril overnight. 4. Patient encouraged to reposition and ambulate to promote physiologic labor and .?Encouraged rest overnight. 5. Dr. Jamison aware of patient admission and recommended cook and pitocin overnight. She was updated of patient status after AROM. 6. Anticipate ? Delivery/Labor/Induction Plan Plan: induction Induction method: per pitocin protocol (Following accidental AROM) OB Result Labs Labs: Lab Assessment Start: 03/04/25 19:40 Freq: ONCE Status: Active Protocol: PC.OBGBS Activity Type Activity Date Activity User E-sign Co-sign Detail Recorded Client Recorded Date Recorded By Document 03/04/25 19:43 MMT No Response 03/04/25 19:52 MMT 03/04/25 19:43 Lab Assessment GBS Status negative Is Patient Allergic to Penicillin? No Are Labs Available Yes Maternal Blood Type A Maternal RH Factor Positive Evaluate Maternal Rubella Immune Status Immune Hepatitis B Surface Antigen Negative Maternal HIV Status Negative Maternal Syphilis (RPR) Status Negative Labs Blood Type: A (+) positive OB Exam Physical Exam Vital signs: Pulse BP 103 H 128/74 03/04/25 19:55 03/04/25 19:55 Narrative: Vitals Reviewed Constitutional:? Alert and oriented x3 HEENT:? Normocephalic, atraumatic Neck:? Supple Lungs:? Clear to auscultation bilaterally Heart:? Regular rate and rhythm, no murmur, rub or gallop Abdomen:? Soft, nontender, and gravid. Vertex by David's, confirmed with cervical exam. Extremities:? No edema or erythema Cervix: 1 cm/30%/-3 station/vertex; AROM with cook placement, cook removed NST: 145 bpm/moderate variability/15x15 accelerations/no decelerations/contractions not present Detailed Labor and Delivery Exam Patient Gravid: Yes
[2025-03-04] MEDS: OXYTOCIN 30 unit/500 ML in NS 30 UNIT/500 ML BAG IVPB (21:09)
[2025-03-04] MEDS: LACTATED RINGERS 1000 ML 1,000 ML 125 ML IV (21:10)
[2025-03-04 21:24] LABS: Basophils Absolute Auto 0.01 K/uL (0.00-0.30); Basophils Percent Auto 0.1 % (0.0-3.0); Eosinophils Absolute Auto 0.07 K/uL (0.00-0.50); Eosinophils Percent Auto 0.7 % (0.0-7.0); Hematocrit 37.1 % (33.0-51.0); Hemoglobin* 12.9 gm/dL (12.0-16.0); Immature Granulocytes Abs Auto 0.02 K/uL (0.00-0.30); Immature Granulocytes Pct Auto 0.2 %; Lymphocytes Absolute Auto 2.07 K/uL (0.90-2.90); Mean Corpuscular HGB Conc 35 gm/dL (32-36); Mean Corpuscular Hemoglobin 32 pg (26-34); Mean Corpuscular Volume 91 fL (80-100); Monocytes Percent Auto 7.7 % (0.0-11.0); Neutrophils Absolute Auto 7.36 K/uL (1.7-7.0); Neutrophils Percent Auto 71.3 % (42.0-72.0); Platelet Count* 224 K/uL (140-440); RDW Coefficient of Variation % 12.8 % (11.5-15.5); Red Blood Count 4.09 m/uL (4.00-5.20); White Blood Count* 10.33 K/uL (4.50-11.00)
[2025-03-04 21:35] LABS: Slide Review Reflex No
[2025-03-05] VITALS (98 sets, daily range): BP systolic 85–143; BP diastolic 49–83; PULSE 57–139; RESP 18; TEMP 36.3–37.1; O2SAT 90–100
[2025-03-05] MEDS: ONDANSETRON 2 MG/ML inj 4 MG IV (06:20)
[2025-03-05] MEDS: LACTATED RINGERS 1000 ML 1,000 ML 125 ML IV ×4 (07:11→14:29)
--- NOTE | 2025-03-05 07:21 | P.OBPN_ITS ---
Subjective Date Seen: 03/05/25 Narrative: Meagan has continued on Pitocin titration overnight. Her contractions have continued to build overnight. She states that they are uncomfortable at this time but still tolerable although she has not been able to sleep much due to them. She is currently sitting on the birthing ball in the room supported by her . We discussed a SVE at this time. She declines at this time stating that she would like to wait until they increase in intensity. Discussed that we could check at any time but would reevaluate around noon. Encouraged her to rest if able some this morning and if unable or between resting to use position changes and labor warm up to help encourage labor progress. Will continue with titration as able per policy. denies questions or concerns at this time. Objective Vital Signs: Last Vital Signs Temp 98.4 F 03/05/25 06:35 Pulse 88 03/05/25 06:35 BP 119/73 03/05/25 06:35 Contractions Monitor mode: External Contraction Frequency: 1.5-3 Contraction pattern: Regular Contraction intensity: Moderate Pitocin Rate (mU/min): 6 Assessment Assessment: induction ongoing Status: Category l Heart Rate Baseline: 120 Web Marketing Strategist Variability: Moderate (6-25) Monitor Accelerations: Present Monitor Decelerations: None Plan Plan: ASSESSMENT:? 24 yo at 37 1/7 weeks gestation? complicated by:?IUGR 3%ile, Marginal Cord (1.7 cm from placenta edge), Varicella non-immune Labor type: Induced, early labor? Category 1 FHR pattern.?? Labor complicated by: none? GBS negative? ? PLAN:? 1. Routine intrapartum cares as ordered. Continue with Pitocin titration. Patient is agreeable to plan. 2. Monitoring per policy, continuous with IUGR.? 3. Planning unmedicated . Candidate for analgesia of choice, if desired. 4. Patient encouraged to reposition and ambulate to promote physiologic labor and .? 5. Dr. Sanford aware of patient IOL status. Will continue to update on progress as needed. 6. Anticipate ?
--- NOTE | 2025-03-05 11:34 | PM.OBPNL ---
Subjective Date Seen: 03/05/25 Narrative: Meagan has been laboring in the tub and is working through contractions. She is considering and epidural and requests a SVE at this time. On exam she was found to be 8cm/90%/-2. She had questions about epidural as well as nitrous. Reviewed both options and she would like to start with nitrous at this time but may consider an epidural. Encouraged her to continue with position changes and coping. Denies further questions or concerns at this time. Objective Vital Signs: Last Vital Signs Temp 97.4 F L 03/05/25 10:16 Pulse 80 03/05/25 10:16 BP 135/83 03/05/25 10:16 Pelvic Exam Dilation (cm): 8 Effacement (%): 90 Station: -2 Contractions Monitor mode: External Contraction pattern: Regular Contraction intensity: Moderate Pitocin Rate (mU/min): 8 Assessment Assessment: active labor Station: -2 Amniotic Membrane Status: AROM Status: Category l Heart Rate Baseline: 125 Reimbursement Rep Variability: Moderate (6-25) Monitor Accelerations: Present Monitor Decelerations: Variable (occasional) Plan Plan: ASSESSMENT:? 24 yo at 37 1/7 weeks gestation? complicated by:?IUGR 3%ile, Marginal Cord (1.7 cm from placenta edge), Varicella non-immune Labor type: Induced, active labor? Category 2 FHR pattern. Occasional variable decelerations. ?? Labor complicated by: none? GBS negative? ? PLAN:? 1. Routine intrapartum cares as ordered. Continue with Pitocin titration. Patient is agreeable to plan. 2. Monitoring per policy, continuous with IUGR.? 3. Requesting epidural placement. 4. Patient encouraged to reposition and ambulate to promote physiologic labor and .? 5. Dr. Sanford aware of patient status. Will continue to update on progress as needed. 6. Anticipate ?
[2025-03-05] MEDS: LIDOCAINE 2% (PF) 5 ML VIAL EPIDURAL (12:24)
[2025-03-05] MEDS: ROPIVACAINE 0.2 % PF 10 ML INJ 20 MG EPIDURAL (12:24)
[2025-03-05] MEDS: ROPIVACAINE 0.2% 100 ml 100 ML 12 MG EPIDURAL (12:24)
[2025-03-05] MEDS: PHENYLEPHRINE 100 MCG/ML SYRINGE IVP ×3 (12:26→13:23)
--- NOTE | 2025-03-05 12:29 | PM.ANBPRC ---
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 . Denies church/cultural needs. Denies chemical or radiation exposure. Denies pre or current tobacco use. Occasional alcohol use pre , no current alcohol use Denies recreational drug use Blood transfusion is acceptable in emergency What is your current living situation?: I presently have a place to live Problems where you live: no known problems In the past 12 months, utilities in danger of being shut off: no In past 12 months, lack of transportation kept you from medical appts, meetings, work, or getting things needed for daily living: no In the past 12 mos, have been you worried that your food would run out before you had money to buy more?: never true In the past 12 mos, the food you bought just didn't last and you didn't have money to buy more?: never true Smoking Status: Never smoker How often does anyone, including family, friends and others, physically hurt you: never How often does anyone, including family, friends and others, insult or talk down to you: never How often does anyone, including family, friends and others, threaten you with harm: never How often does anyone, including family, friends and others, scream or curse at you: never Meds Home Medications and Allergies Home Medications ?Medication ?Instructions ?Recorded ?Confirmed ?Type acetaminophen 500 mg oral powder 500 mg PO Q6H PRN 06/04/24 03/05/25 History packet (Tylenol Extra Strength) docosahexaenoic acid 200 mg 200 mg PO DAILY 06/04/24 03/05/25 History capsule ( DHA) Allergies Allergy/AdvReac Type Severity Reaction Status Date / Time No Known Drug Allergies Allergy Verified 03/04/25 22:51 Results Labs Labs: Laboratory Results - last 24 hr 03/04/25 21:16 WBC 10.33 RBC 4.09 Hgb 12.9 Hct 37.1 MCV 91 MCH 32 MCHC 35 RDW Coeff of Sue 12.8 Plt Count 224 Neut % (Auto) 71.3 Lymph % (Auto) 20.0 Mcdowell % (Auto) 7.7 Eos % (Auto) 0.7 Baso % (Auto) 0.1 Neut # (Auto) 7.36 H Lymph # (Auto) 2.07 Mcdowell # (Auto) 0.80 Eos # (Auto) 0.07 Baso # (Auto) 0.01 Abs Immat Gran (auto) 0.02 Imm/Tot Granulo (auto) 0.2 Blood Type A Positive Antibody Screen NEGATIVE Vital Signs Vital Signs: Last Vital Signs Temp 97.4 F L 03/05/25 10:16 Pulse 99 03/05/25 12:28 BP 111/55 L 03/05/25 12:28 Pulse Ox 100 03/05/25 12:29 Weight: 84.995 kg Height: 160.02 cm Anesthesia Procedures Epidural Insertion Patient Location: OB Start Time: 11:50 Stop Time: 12:33 Start Date: 03/05/25 Stop Date: 03/05/25 Reason for Block: procedure for pain Patient Position: sitting Performed By: Anival Justin Preanesthetic Checklist: IV checked, risks and benefits discussed, surgical consent, monitors and equipment checked, pre-op evaluation, timeout performed and anesthesia consent Prep: chlorhexidine gluconate Monitoring: blood pressure monitoring, continuous pulse oximetry and heart rate Approach: midline Vertebral Space: lumbar (1-5) Epidural Technique: ELLIS air Needle Type: Tuohy needle Injection Technique: continuous catheter Needle gauge: 17 Needle Length (cm): 10 cm Needle Insertion Depth (cm): 7 Catheter Gauge: 19 Catheter Type: multi-orifice Catheter at skin depth (cm): 13 Test Dose Result: negative and lidocaine 1.5% with epinephrine 1 to 200,000
--- NOTE | 2025-03-05 19:20 | W.PM.OBVAGDE ---
OB Procedure Vag Delivery Mother Details Mother Details: The patient is a 24 year-old, 2, Para 0, admitted on 03/04/25 at 37.0 Days gestation for IOL for IUGR at 3%ile. : 2 Para: 1 Weeks Gestation: 37.1 Admission Date: 03/04/25 Additional Details Amniotic Membrane Status: AROM Amniotic Membrane Rupture Date: 03/04/25 Amniotic Membrane Rupture Time: 20:17 Amniotic Membrane Fluid Description: Clear Analgesia/Anesthesia Type: Epidural and Nitrous Oxide Waterbirth: No Pitcoin: Yes (for IOL) Intrapartal Events: Labor Induction, ROM >18 Hours, Prolonged 2nd Stage >2.5 Hrs and Anesthesia Complications (Winston's syndrome) Induction Method: per pitocin protocol Labor Onset: 11:18 Complete: 15:06 Pushin:14 Heart: heart tones during second stage were category 2 with recurrent variables with good return to baseline and good variability. Longer deceleration to the 60's noted with large crown. Pushing encouraged to expedite delivery at that time. Delivery Details Delivery Date: 03/05/25 Delivery Time: 18:07 Route of delivery: Gender: Female Infant Viability: Alive; Heart Rate Present Position at Delivery: OP Delivery Details: Patient was admitted for IOL for IUGR and progressed with Pitocin titration after accidental AROM with cook placement. AROM noted at 2016 on 03/04/25 with clear fluid. Patient was complete at 1506 and pushing at 1514. of a viable female at 1807 in right tilt. Vertex delivered OP with a compound hand at the time of delivery. No nuchal cord or shoulder. Body delivered easily and without incident. passed to mothers abdomen with a vigorous cry. Cord was clamped and cut at > 5 minutes. APGARS were 8 at one minute and 9 at five minutes respectively. Mouth was bulb suctioned. Intact placenta with a 3 vessel cord delivered spontaneously at 1815. Fundus firm. 3rd degree laceration was suspect so Dr. Sanford consulted and confirmed 3A laceration with a vaginal laceration. Repair done by Dr. Sanford, see her not for details. QBL 350mL and 100ml EBL in the bed from immediately after delivery. Mother and baby stable; mother plans to breastfeed. Infant weight 5lb 7oz.? 1 Minute Interval Total Score: 8 5 Minute Interval Total Score: 9 Additional Details Shoulder Dystocia: No Placenta Delivery Time: 18:15 Placental Delivery Description: Spontaneous Delivery repair: Vicryl Procedure Done: Global Blood Loss: 450 Laceration: Perineal - 3rd Degree (and vaginal, repaired by Dr. Sanford) Episiotomy Description: None Blood Loss Measurement Type: QBL Bakri Used: No Sponge/Need Count Correct: Yes Cord Vessel Description: 3 Vessels Event Summary Status: Mother and were stable after delivery. Disposition: floor
--- NOTE | 2025-03-05 19:53 | W.PM.GYNPROC ---
Procedure Note Date of procedure: 03/05/25 Will [facility] bill your pro fee for this procedure?: Yes Pre-op diagnosis: 3A perineal laceration Vaginal laceration Procedure: Repair of 3A perineal laceration and complex vaginal laceration Anesthesia: epidural Complications: None Surgeon: Benji Sanford MD Estimated blood loss (mL): 450 (Total QBL from delivery) Pathology: none sent Condition: stable Disposition: floor Findings: 3A perineal laceration Complex vaginal laceration Procedure Description: I was called to patient's room for a suspected third degree laceration after an uncomplicated . Baby delivered direct OP with a compound presentation with the hand. I was consulted at 1847 and presented the bedside. On arrival, QBL was noted to be about 300cc in the drape. Exam was performed, where I agreed with the impression of Becky Kaiser CNM regarding a third degree laceration. A sterile digital rectal exam was performed, where the external anal sphincter was noted to have just the capsule disrupted but disruption of the internal anal sphincter was noted. Careful exam confirmed the rectum to be intact throughout. The overlying skin of the perineum was torn midway down the perineum. There was extension of the vaginal component of the third degree that met a second vaginal laceration that tracked proximally along the posterior right vagina. I started by grasping the torn edges of the internal anal sphincter and reapproximated then secured this proximally with a [id number] suture with 0 vicryl. A second [id number] was applied to reapproximate and secure the more distal aspect of the internal anal sphincter. The torn edges of the external anal sphincter capsule were grasped and brought together in the midline in an end-to-end fashion with two interrupted throws of 0 vicryl. Attention was then turned to the right vaginal laceration as this was noted to be bleeding. Starting at the apex, this laceration was repaired in a running locking fashion with 0 vicryl until it met the 3rd degree perineal laceration in the midline. Several deep interrupted sutures of 2-0 vicryl were then placed to reapproximate the midline deep vaginal tissues. A 2-0 vicryl was then utilized to close the superficial vaginal mucosa and perineal tissue in the typical fashion, skin closed in a running/locking suture. Rectal exam at the conclusion confirmed that there were no mucosal defects and no suture in the rectum. Patient tolerated the procedure well. Sponge, instrument, and needle counts were correct at the conclusion. Total EBL in the drape was 350cc at completion of my repair. After weighing items, total QBL perbedside RN was 450cc for the entirety of the delivery and repair. Debrief completed with patient. Care was then turned back over to Becky Kaiser CNM.
[2025-03-05] MEDS: ACETAMINOPHEN 500 MG TABLET 1000 MG PO (21:12)
[2025-03-05] MEDS: IBUPROFEN 600 MG TABLET PO (23:03)
[2025-03-06] MEDS: ACETAMINOPHEN 500 MG TABLET 1000 MG PO ×2 (03:13→08:31)
[2025-03-06 03:21] VITALS: BP 101/67; PULSE 72; RESP 16; TEMP 36.7; O2SAT 96
[2025-03-06 06:30] LABS: Hemoglobin* 11.1 gm/dL (12.0-16.0)
[2025-03-06 08:00] VITALS: BP 111/73; PULSE 81; RESP 16; TEMP 36.6; O2SAT 96
[2025-03-06 08:31] VITALS: TEMP 36.6
[2025-03-06] MEDS: DOCUSATE SODIUM 100 MG CAPSULE PO (08:32)
--- NOTE | 2025-03-06 09:24 | PM.OBPNVD1 ---
OB - PN:Subj Subjective Date Seen: 03/06/25 Narrative: Meagan is a 24 year old G2 [id number] who was admitted for IOL for severe IUGR and proceeded to have a vaginal with a 3rd degree laceration that was repaired.The patient feels well.? The pain is well controlled with current medications.? She has no new complaints.? Urinary output is adequate and she is voiding without difficulty.? Has a good appetite, is tolerating a general diet, is passing flatus, and has had a bowel movement with no difficulty.? Has scant amount of rubra lochia.? She is ambulating well. She is and reports it is going well.? OB - PN: Obj Exam Physical Exam: Vital signs: Temp Pulse Resp BP Pulse Ox O2 Del Method 97.8 F 81 16 111/73 96 Room Air 03/06/25 08:31 03/06/25 08:00 03/06/25 08:00 03/06/25 08:00 03/06/25 08:00 03/06/25 08:00 Narrative: GENERAL APPEARANCE:? normal affect, alert, no distress MOOD:? appropriate ABDOMEN:? soft, non-tender the uterine fundus is 2 fingerbreadths below Umbilicus, Midline and is appropriate for the stage of recovery. PERINEUM:?deferred since minimal discomfort and pt is currently . EXTREMITIES:? normal and minimal edema OB - PN: Obj Data Labs Labs: Laboratory Results - last 24 hr 03/06/25 06:24 Hgb 11.1 L OB - PN: A/P Delivery Assessment and Plan (1) care and examination of lactating mother: Status: Acute (2) Third degree perineal laceration: Status: Acute Plan Comments: PP day #1 Routine care with stool softeners and 3rd degree lac care May see as desired Anticipate discharge 03/07/25
[2025-03-06] MEDS: IBUPROFEN 600 MG TABLET PO (11:40)
[2025-03-06 11:50] VITALS: BP 109/59; PULSE 84; RESP 16; TEMP 36.6; O2SAT 97
--- NOTE | 2025-03-06 12:16 | PM.ANPOST ---
Post Anesthesia Note Post Anesthesia Note Patient seen: Inpatient Respiratory Status: adequate Cardiovascular Status: adequate Mental Status: baseline Pain: adequate Temp: baseline Anesthetic awareness: N/A Complications: none Follow care: none
[2025-03-06 13:44] LABS: Rapid Plasma Reagin (RPR) Non Reactive (Non Reactive)
[2025-03-06 16:24] VITALS: BP 122/75; PULSE 76; RESP 16; TEMP 36.6; O2SAT 97
[2025-03-06 23:57] VITALS: BP 113/69; PULSE 72; RESP 16; O2SAT 96
[2025-03-07] MEDS: ACETAMINOPHEN 500 MG TABLET 1000 MG PO (04:24)
[2025-03-07] MEDS: DOCUSATE SODIUM 100 MG CAPSULE PO (08:09)
[2025-03-07 08:10] VITALS: BP 126/82; PULSE 70; RESP 16; TEMP 36.7; O2SAT 97
--- NOTE | 2025-03-07 08:25 | P.DS_ITS ---
DS: Providers Provider Date Seen: 03/07/25 Date of admission: 03/04/25 19:37 Primary care physician: Not a Local Provider Admitting Clinician: Becky Kaiser CNM Consults: 03/05/25 19:38 Consult to Physician [CONS] Routine Comment: Consult for 3rd degree laceration Consulting Provider: Wendi Sanford Has provider been notified: Yes Attending Physician on discharge: Casi Lopez CNM DS: Diagnosis Discharge Diagnosis (1) care and examination of lactating mother: Status: Acute (2) Third degree perineal laceration: Status: Acute Exam Narrative: Exam Narrative: GENERAL APPEARANCE:? normal affect, alert, no distress MOOD:? appropriate CHEST:? clear to auscultation HEART:? regular rate and rhythm ABDOMEN:? soft, non-tender the uterine fundus is At Umbilicus, Midline and is appropriate for the stage of recovery. PERINEUM:? mild edema of the perineum, there is a Perineal Laceration,?3a, that is healing well. EXTREMITIES:? normal and no edema Const: Vital Signs, click to edit/add: Vital Signs - 24 hr 03/06/25 08:31 03/06/25 11:50 03/06/25 16:24 Temperature 97.8 F 97.8 F 97.9 F Pulse Rate [Pulse Oximeter] 84 76 Respiratory Rate 16 16 Blood Pressure [Le ft Arm] 109/59 L 122/75 Pulse Oximetry 97 97 Oxygen Delivery Me thod Room Air Room Air 03/06/25 23:57 03/07/25 08:10 Temperature 98.1 F Pulse Rate [Pulse Oximeter] 72 70 Respiratory Rate 16 16 Blood Pressure [Le ft Arm] 113/69 126/82 Pulse Oximetry 96 97 Oxygen Delivery Me thod Room Air Room Air Documenting provider has reviewed patient's vital signs: yes OB - DS: Summary Hospital Course Hospital Course: Meagan is a 24 y.o. G 2 P 1011 who was admitted to [facility] for [facility] for suspected IUGR. ?She had a NVD that was complicated by 3a laceration. The patient feels well. ?The pain is well controlled with current medications. ?She has no new c omplaints. ?She is breast feeding and reports things are going well. the patient has done well.? Vitals have been stable.? She has remained afebrile.? Has a good appetite, is tolerating a general diet. ?She is voiding without difficulty.? She is passing gas and has had a small bowel movement.? She is ambulating and denies any dizziness.? Has small amount of rubra lochia. Problems: 3a laceration Discharge home with baby.? Follow up in 2 weeks and 6 weeks.? , may see if needed? Hgb 11.1. ? 3a laceration. Discussed bowel regimen to continue and stay soft for the next 6 weeks to allow for healing. Colace BID with Senna, rx sent. For pain control of perineum, breast and pelvic pain, take 600 mg Ibuprofen every 6 hours as needed by mouth or 1000 mg acetaminophen (Tylenol) every 6 hours by mouth as needed. You can alternate these so you are taking something every 3 hours as needed. A heating pad can also be used for your abdomen or breasts. You may also take docusate sodium up to twice daily to soften your stools and help to prevent constipation. You may wean off of it when your stools return to normal.? Peripartum Data Infant delivery method: Vaginal Laceration description: Perineal - 3rd Degree (3a repaired by .) Gender: Female Discharge Plan: Home Status at Discharge Functional status at discharge: independent ambulation Overall status at discharge: patient is progressing back to baseline Time Spent with Patient Time attestation: Total time spent providing and/or coordinating discharge services: Time spent: Less than 30 minutes Discharge Plan Discharge Disposition: Home, Self-Care Date of Admission: 03/04/25 19:37 Attending Provider on Discharge: Casi Lopez Consulting Providers: Becky Kaiser; Wendi Sanford Primary Care Provider: Provider,Not a Local Condition: Stable Anticipated Discharge Date/Time: 03/07/25 12:00 Discharge Medications: New acetaminophen 500 mg Tablet 1,000 mg PO Q6H PRNQty: 0 0RF docusate sodium 100 mg Capsule 100 mg PO BID PRNQty: 90 0RF ibuprofen 600 mg Tablet 600 mg PO Q6H PRNQty: 60 0RF senna 8.6 mg capsule 8.6 mg PO DAILY PRN (Reason: constipation) Qty: 30 0RF Continued DHA 200 mg capsule 200 mg PO DAILY Discontinued Tylenol Extra Strength 500 mg powder in packet 500 mg PO Q6H PRN Discharge Orders: Discharge Order (Routine); Ordered 03/07/25 Ordered By: Casi Lopez Patient Education: OB Over the Counter Medication Information, OB Vaginal/Breast Feeding Additional Instructions: Discharge instructions were reviewed with the patient including signs and symptoms of infection and home going medications Nothing vaginally for 6 weeks: no tampons or intercourse Off Work or School for 6 weeks 2-week visit: Laceration check, discuss infant feeding concerns, review control options and screen for anxiety/depression. 6-week visit for an annual exam. consultation services are available to all mothers and babies for the first year after delivery.? To make an appointment, please call [phone]. Activity Level: Activity as Tolerated Discharge Diet: Regular Follow Up Appointments: [facility] [Provider Group] Forms: [facility] Info Instructions
[2025-03-07] MEDS: IBUPROFEN 600 MG TABLET PO (10:35)
== END 2025-03-07 11:50 | disposition home or self-care (01) | DRG 768 ==
PROVIDERS: Admitting Provider Advanced Practice Midwife; Visit Provider Advanced Practice Midwife
DX: O36.5930 Maternal care for other known or suspected poor fetal growth, third trimester, not applicable or unspecified (principal); Z37.0 Single live birth; O70.21 Third degree perineal laceration during delivery, IIIa; O63.1 Prolonged second stage (of labor); O76 Abnormality in fetal heart rate and rhythm complicating labor and delivery; O43.193 Other malformation of placenta, third trimester; G90.2 Horner's syndrome; Z3A.37 37 weeks gestation of pregnancy
CPT/HCPCS: 01967; 36415; 59200; 85018; 85025; 86592; 86850; 86900; 86901; 88307; G0463; A9270; C1726; J2405; J2795; J7120

== ENCOUNTER 2025-03-11 09:28 | Outpatient (CLI) | payer OTHER, SELFPAY ==
--- NOTE | 2025-03-11 14:35 | W.PM.LAC.MC ---
Consult Note - Mom Date of Visit Date of visit: 03/11/25 Reason for consultation: Assistance Needed, Low Milk Supply, Infant Weight Concern and Other Visit Code: Visit Patient's Information Phone number: [phone] : 2 Para: 1 Allergies No Known Drug Allergies Allergy (Verified 03/04/25 22:51) Work Plans: will be home with baby Delivery Information Delivery type: Vaginal Gestational Age: 37+1 Gestational Weight For Age: AGA Weight: 2.46 kg Discharge Weight: 2.36 kg Percentage weight loss: 4.1 Baby's Information Baby's Age at Visit: 6 days Baby's Provider or Clinic: [facility] Jaundice: Yes Past Experience Past Experience: No Current Frequency of Day Feedings: every 2-3 hrs, but very sleepy and hard to wake Frequency of Night Feedings: every 3 hours Both Breasts: Yes (offered) Suck: strong Latch: deep, comfortable Length of Time: 5-6 minutes, feedings are taking about an hour Goals: at least 1 year Pumping Pumping: No Supplementing EBM Supplement: No Formula Supplement: Yes (taking 20-30ml after BFing) Baby Elimination Number of Wet Diapers a Day: ea feeding Number of BM a Day: none for 31 hours now Breast/Nipple Condition Breast Information: Breasts are symmetrical with rounded lower quadrants, intramammary distance is less than 1.5 inches. No erythema. Nipples are supple, everted prior to feeding. Meagan reports she did have breast changes during . She has not had the feeling of her milk coming in yet. She is able to hand express drops of colostrum prior to nursing but doesn't feel full. Breast Shape: Round Engorgement: No Maternal Nipple Condition - Left: Common Nipple Maternal Nipple Condition - Right: Common Nipple Sore Nipples: No Baby Assessment Skin: Yellow (yellow to abdomen) Tongue/frenulum: Normal/elastic Palate: Average Lips: Relaxed and Symmetrical Jaw Alignment: Symmetrical Mucosa: Pulcifer, moist Onsite Observation Pre-Feed weight: 2.336 kg (up 46 gms from clinic yesterday) Post-Feed weight: 2.384 kg Milk Transferred (mL): 48 (48mls total; 11ml was at the breast; 37ml was formula via SNS/paced bottle feeding) Position: Cradle Attachment/latch-on achieved: Easily Suck pattern: Extended rest phase, lots of stimulation to keep baby nursing (minimal swallows heard) Swallow: Occasionally Behavior following feed: Relaxed, sleepy Pre-Nursing Left Nipple: Within Normal Limits Pre-Nursing Right Nipple: Within Normal Limits Post-Nursing Left Nipple: Within Normal Limits Post-Nursing Right Nipple: Within Normal Limits Assessments/Interventions Assessments/Interventions: Babe very sleepy at the breast; will engage in feeding for 6 minutes with strong suck noted, no swallows heard. Switched to 2nd breast, less interested in suckling here; engaged in feeding when SNS was offered. Then baby sucked strong and ananya 10 ml from syringe in a few minutes; syringe refilled and baby ananya next 10 ml quite quickly. Parents interested in seeing paced bottle feeding, so last 10 ml offered via bottle; babe took 17 ml. Baby weighed and was up 48gm from prefeed weight so 37 ml of formula and 11 ml breastmilk transferred for feeding. We then set up mom's Spectra pump she brought with her to the appointment. Reviewed the settings and it's use; mom pumped for 20 minutes, cycling through the different modes. She was able to express 5-7ml of milk in this time; looks like transitional milk. Discussed they can use this to start off the next feeding. Education provided: Early feeding cues to maximize timing of latching, Asymmetric latch technique for wide/deep latch to increase milk, Transfer for baby and increase comfort for mom, Supply/demand nature of milk supply, Need for frequent stimulation/milk removal, Alternative feeding methods (SNS, cup, finger feeding, bottling), Pumping for milk management and Milk collection, storage Handouts Provided: Paced bottle feeding Spectra: How to pump more milk. Handout given and reviewed. Pump settings all discussed and expectations for milk production reviewed Bottle options also discussed Feeding Plan: Breastfeed for 5-10 on each breast, listening for active swallowing; minimize time if no swallowing noted or baby is getting sleepy Pump both breasts for: 15-20 minutes after each feeding; a full 20 minutes if pumping instead of Feed baby 45-50 ml of pumped milk and/or formula every 3 hours based on feeding cues; given fatigue better to feed every 3 hours if baby can take volume needed for growth and conserve energy Use a syringe/feeding tube, cup, or bottle for feedings based on preference. Options discussed Rest, and repeat every 3 hours, watch for early feeding cues Try skin to skin to increase milk production Follow-Up Suggested follow up: Appointment in 1-3 days (per Dr. Green after know bili results) Time Spent Time spent with patient (min): 120 (reviewing EMR and face to face with patient, and ) Meds Home Medications and Allergies Home Medications ?Medication ?Instructions ?Recorded ?Confirmed ?Type docosahexaenoic acid 200 mg 200 mg PO DAILY 06/04/24 03/05/25 History capsule ( DHA) Allergies Allergy/AdvReac Type Severity Reaction Status Date / Time No Known Drug Allergies Allergy Verified 03/04/25 22:51
== END 2025-03-11 09:29 | disposition home or self-care (01) ==
PROVIDERS: Visit Provider Advanced Practice Midwife
DX: Z39.1 Encounter for care and examination of lactating mother (principal)
CPT/HCPCS: G0463

== ENCOUNTER 2025-03-14 13:00 | Outpatient (CLI) | payer OTHER, SELFPAY ==
--- NOTE | 2025-03-14 15:19 | W.PM.LAC.MF ---
Follow-Up Note: Mom Date of visit Date of visit: 03/14/25 Reason for consultation: Low Milk Supply Visit Code: Visit Patient's Information Allergies No Known Drug Allergies Allergy (Verified 03/04/25 22:51) Change in mother's history since last visit: Milk is barely starting to come in. She is 9 days , pumps every times baby feeds, about every 3 hours. Usually gets 5-10 ml total. One time yesterday she got 30ml, but just the one time. She is using her Spectra pump; she got flange sizes more appropriate to her measuring, but they feel pinchy Deeper review of her health history: no difficulty conceiving, no hemorrhage, no thyroid issues, bleeding is light, minimal cramping with feeding/pumping, no history of breast surgery/injury. She is eating well and drinking fluids with each feeding. Delivery Information Delivery type: Vaginal Gestational Age: 37+1 Gestational Weight For Age: AGA Weight: 2.46 kg Last Weight: 2.36 kg Baby's Information Baby's name: Sakshi Richard Baby's Age at Visit: 9 days Baby's Provider or Clinic: [facility] Current Frequency of Day Feedings: every 2.5-3 hours, mostly every 3 hours, needs waking for most feedings Frequency of Night Feedings: same Both Breasts: Yes Suck: strong Latch: deep Length of Time: 10 min ea side Pumping Pumping: Yes Quantity Pumped: 5-10 ml Supplementing EBM Supplement: Yes Formula Supplement: Yes (total supplement 36-40ml) Baby Elimination Number of Wet Diapers a Day: ea feeding or more Number of BM a Day: ea feeding or more, yellow, some seediness Breast/Nipple Assessment Breast/Nipple Assessment: Breasts are symmetrical with rounded lower quadrants, intramammary distance is less than 1.5 inches. No erythema. Nipples are supple, everted prior to feeding. Able to easily express drops of white milk prior to bringing baby to the breast. Mom has not had the sensation of her milk coming in Breast Shape: Round Engorgement: No Maternal Nipple Condition - Left: Common Nipple Maternal Nipple Condition - Right: Common Nipple Sore Nipples: No Onsite Observation Pre-feed weight: 2.48 kg (up 96gms in 3 days) Post-Feed weight: 2.486 kg Milk Transferred (mL): 6 Pre-Nursing Left Nipple: Within Normal Limits Pre-Nursing Right Nipple: Within Normal Limits Post-Nursing Left Nipple: Within Normal Limits Post-Nursing Right Nipple: Within Normal Limits Assessments/Interventions Assessments/Interventions: Nette latched deeply to both mom's breast, first her left, then her right. Nursed 10 minutes on each side before ending feeding; was still going strongly on her left but ended feeding to keep close to what family is doing at home. Nette nursed 10 min on mom's right side, but started getting more tired at about the 6 minute noris. Transferred 6ml from her LEFT side, and 0ml from her RIGHT side despite being latched well. Discussed the following topics: galactogogues - can try if desired to see if stimulates milk supply, no guarantee they'll work, but seem to help some people SNS from [facility] vs syringe/feeding tube set up currently using as Dad gets ready to go back to work pumping every 3, flange size, hand expression after pumping for maximum stimulation delayed lactogenesis II Education provided: Asymmetric latch technique for wide/deep latch to increase milk, Transfer for baby and increase comfort for mom, Supply/demand nature of milk supply, Hand expression, Alternative feeding methods (SNS, cup, finger feeding, bottling) and Pumping for milk management Follow-Up Suggested follow up: Phone call in 24-48 hours (to evaluate progress in feeding and milk productin) Time Spent Time spent with patient (min): 90 Meds Home Medications and Allergies Home Medications ?Medication ?Instructions ?Recorded ?Confirmed ?Type docosahexaenoic acid 200 mg 200 mg PO DAILY 06/04/24 03/05/25 History capsule ( DHA) Allergies Allergy/AdvReac Type Severity Reaction Status Date / Time No Known Drug Allergies Allergy Verified 03/04/25 22:51
== END 2025-03-14 13:01 | disposition home or self-care (01) ==
LOC: OB LAC 13:00
PROVIDERS: Visit Provider Obstetrics & Gynecology
DX: Z39.1 Encounter for care and examination of lactating mother (principal)
CPT/HCPCS: G0463